=== PATIENT | female | born 1980 | race Caucasian/White ===

== ENCOUNTER 2021-12-17 18:12 | Emergency (ER) | payer OTHER, SELFPAY ==
--- NOTE | 2021-12-17 | ECG_ITS ---
Test Reason : med clearance Blood Pressure : / mmHG Vent. Rate : 077 BPM Atrial Rate : 077 BPM P-R Int : 150 ms QRS Dur : 098 ms QT Int : 426 ms P-R-T Axes : 050 084 046 degrees QTc Int : 482 ms Sinus rhythm with marked sinus arrhythmia Prolonged QT Abnormal ECG No previous ECGs available Referred By: Judi Hernandez Electronically Signed By:JOSH DURAN MD
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
[2021-12-17 18:32] VITALS: BMI 29.9
--- NOTE | 2021-12-17 19:43 | PC.NURSE ---
This RN spoke with poison control ([facility]) and it was recommended to do a full lab panel as well as Tylenol and salicylate level. EKG now and another 4 hours later to monitor QRS complex for widening. If above 110mm benzo's are recommended.
[2021-12-17 19:47] LABS: Appearance Urine Turbid; Color Urine Yellow; Glucose Urine UA Negative (Negative); Leukocyte Esterase Urine Trace (Negative); Nitrite Urine Negative (Negative); PH 5.5 (5.0-9.0); Specific Gravity - Urine >= 1.030 (1.005-1.025); UMIC TRIGGER UACC YES; Urine Blood Negative (Negative); Urine Ketones Trace mg/dL (Negative); Urine Protein 30 (1+) mg/dL (Neg-Trace)
[2021-12-17 19:48] LABS: UPreg QC Valid YES; Urine Pregnancy NEGATIVE (NEGATIVE)
[2021-12-17 19:51] LABS: MANUAL DIFF FLAG NO
[2021-12-17 19:54] LABS: Basophils Absolute Auto 0.1 X10*3/uL (0.0-0.2); Basophils Percent Auto 0.5 % (0-2); Eosinophils Percent Auto 0.2 % (0-4); Hemoglobin 12.2 g/dl (12.0-16.0); Imm Gran Abs Auto 0.03 X10*3/uL (0.00-0.03); Imm Gran Pct Auto 0.3 % (0.0-0.4); Lymphocytes Absolute Auto 1.3 X10*3/uL (1.2-4.9); Lymphocytes Percent Auto 12.8 % (20-40); Mean Corpuscular Hemoglobin 30.3 pg (27.0-33.0); Mean Corpuscular Volume 91.8 fL (80.0-98.0); Mean Platelet Volume 9.9 fL (9.4-12.3); Monocytes Absolute Auto 0.4 X10*3/uL (0.1-1.2); Monocytes Percent Auto 3.6 % (2-11); Neutrophils Absolute Auto 8.5 x10*3/uL (2.0-8.3); Neutrophils Percent Auto 82.6 % (45-73); Platelet Count 277 X10*3/uL (160-400); Red Blood Count 4.03 X10*6/uL (4.20-5.50); Red Cell Distribution Width 14.3 % (11.0-16.0); White Blood Count 10.3 X10*3/uL (4.8-10.8)
[2021-12-17 19:58] LABS: COVID-19 Test Negative (Negative)
[2021-12-17 20:00] LABS: Amphetamine Screen Urine Not Detected (Not Detect); Bacteria Urine 4+ (None Seen); Barbiturates, Urine Not Detected (Not Detect); Benzodiazepines Screen Urine Not Detected (Not Detect); Cannabinoid Screen Urine POSITIVE (Not Detect); Cocaine Screen Urine POSITIVE (Not Detect); Fentanyl, urine Not Detected (Not Detect); Hyaline Casts Urine 0-2 /LPF (0-2); Opiate Screen Urine Not Detected (Not Detect); Phencyclidine Screen Urine Not Detected (Not Detect); RBC Urine 0-2 /HPF (0-2); Squamous Epithelial Cell Urine >20 /HPF (0-2); UACC Culture Trigger YES
[2021-12-17] MEDS: OLANZapine 10 MG VIAL IM (20:23)
[2021-12-17 20:28] LABS: Alanine Aminotransferase 26 U/L (0-31); Albumin Level 4.1 g/dL (3.5-5.0); Alkaline Phosphatase 84 U/L (39-117); Anion Gap 18 (12-20); Aspartate Amino Transferase 23 U/L (5-31); Bilirubin Total 0.4 mg/dL (0.0-1.0); Blood Urea Nitrogen 22 mg/dL (9-16); Calcium 8.7 mg/dL (8.4-10.2); Carbon Dioxide 18 mmol/L (22-29); Chloride 108 mmol/L (96-108); Creatinine Clr Calc Pharmacy 96.4; Estimated Glomerular Filt Rate > 60; Glucose Random 92 mg/dL (60-115); Potassium 3.6 mmol/L (3.3-5.1); Sodium 140 mmol/L (135-145)
[2021-12-17 20:41] LABS: Acetaminophen LAB < 1 mcg/mL (<30); Salicylate < 5.0 mg/dL (15-30)
[2021-12-17] MEDS: Magnesium Oxide 400 MG TABLET 800 MG PO (20:52)
[2021-12-17 22:00] VITALS: BP 122/74; PULSE 70; RESP 21; O2SAT 99
[2021-12-17] MEDS: LORazepam 1 MG TABLET 4 MG PO (22:26)
--- NOTE | 2021-12-18 00:10 | PC.NURSE ---
Second EKG done per poison control. Patient sleeping deeply but wakes to light touch. [facility] evaluation rescheduled to morning d/t sleepiness and ativan po.
--- NOTE | 2021-12-18 02:12 | PC.NURSE ---
Patient curled up on side sleeping soundly. Resp equal unlabored.
--- NOTE | 2021-12-18 02:25 | PC.NURSE ---
Poison control updated. Patient medically cleared from their consult service
[2021-12-18 03:27] VITALS: RESP 18
--- NOTE | 2021-12-18 10:39 | PC.NURSE ---
slept all morning, i woke her to inform her that bhn would be coming soon and that breakfast was here. pt went right back to sleep
[2021-12-18] MEDS: Nitrofurantoin Monohyd/M-Cryst 100 MG CAPSULE PO (10:40)
== END 2021-12-18 12:35 | disposition home or self-care (01) ==
PROVIDERS: Nurse Practitioner Family; Emergency Provider Student in an Organized Health Care Education/Training Program; PCP Family Medicine
DX: F43.10 Post-traumatic stress disorder, unspecified (principal); R45.851 Suicidal ideations; Z20.822 Contact with and (suspected) exposure to COVID-19; Z79.899 Other long term (current) drug therapy
CPT/HCPCS: 36415; 80053; 80143; 80179; 80307; 81001; 81025; 85025; 87086; 87635; 93005; 96372; 99284; 99285